=== PATIENT | male | born 1990 | race Caucasian/White ===

== ENCOUNTER 2017-08-05 08:31 | Day surgery (SDC) | payer OTHER ==
[2017-08-05] MEDS: NS 1,000 ML IV (08:52)
[2017-08-05] MEDS ORDERED: fentaNYL 100 MCG/2 ML INJECTION (J3010) As Ordered (10:09)
[2017-08-05] MEDS ORDERED: PROPOFOL 200 MG/20 ML VIAL As Ordered ×2 (10:36)
[2017-08-05] MEDS ORDERED: LIDOCAINE 2% INJ 100 MG/5 ML SDV (FOR ANES.) As Ordered (10:36)
== END 2017-08-05 11:27 | disposition home or self-care (01) ==
LOC: M OPP 08:31
DX: K22.8 Other specified diseases of esophagus (principal); K25.9 Gastric ulcer, unspecified as acute or chronic, without hemorrhage or perforation; R10.13 Epigastric pain; R11.10 Vomiting, unspecified; K21.9 Gastro-esophageal reflux disease without esophagitis; Z79.899 Other long term (current) drug therapy; Z86.19 Personal history of other infectious and parasitic diseases; Z87.19 Personal history of other diseases of the digestive system; Z87.891 Personal history of nicotine dependence
CPT/HCPCS: 43239